=== PATIENT | female | born 1960 | race Two or more races ===

== ENCOUNTER 2024-06-08 09:43 | Emergency (ER) | payer MEDICAID, OTHER ==
[~2024-06-08] VITALS: Ht 167.6 cm; Wt 98.0 kg
[2024-06-08 09:45] VITALS: O2SAT 100
[2024-06-08] MEDS: MORPHINE SULFATE 4 MG/ML INJ (FOR IV/IM USE) IV ONE ×2 (11:36→14:13)
[2024-06-08 12:01] LABS: BASOPHILS % 0.2 % (0.0-2.0); EOSINOPHILS % 0.8 % (0.0-5.0); HEMATOCRIT. 36.8 % (36.0-48.0); HEMOGLOBIN. 11.8 g/dL (12.0-16.0); LYMPHOCYTES % 8.4 % (20.0-50.0); MEAN CORPUSCULAR HGB CONC 32.2 g/dL (31.0-37.0); MEAN CORPUSCULAR VOLUME 90.1 fL (81.0-99.0); MEAN PLATELET VOLUME 8.4 fl (7.4-10.4); MONOCYTES % 4.5 % (2.0-8.0); NEUTROPHILS % 86.1 % (40.0-76.0); PLATELET 272 x1000/uL (130-400); RED BLOOD CELL COUNT 4.09 mill/uL (4.2-5.4); RED CELL DISTRIBUTION WIDTH 15.2 % (11.6-14.6); WHITE BLOOD COUNT 16.3 x1000/uL (4.5-11.0)
[2024-06-08 12:08] LABS: CHLORIDE 104 mEq/L (98-107); POTASSIUM 3.8 mEq/L (3.5-5.1); SODIUM 137 mEq/L (136-145)
[2024-06-08 12:09] LABS: CALCIUM 9.5 mg/dL (8.7-10.4); CARBON DIOXIDE 26 mEq/L (21-32)
[2024-06-08 12:14] LABS: CREATININE 0.4 mg/dL (0.6-1.0); GLUCOSE 110 mg/dL (70-105); UREA NITROGEN BLOOD 11 mg/dL (9-23)
[2024-06-08 12:16] LABS: ALANINE AMINOTRANSFERASE 20 IU/L (10-49); ALBUMIN 4.3 g/dL (3.2-4.8); ASPARTATE AMINOTRANSFERASE 25 IU/L (<34); BILIRUBIN TOTAL 0.4 mg/dL (0.1-1.0); PROTEIN TOTAL 7.7 g/dL (6.0-8.3)
[2024-06-08] MEDS: LACTATED RINGERS 1,000 ML IV SCH (14:00)
[2024-06-08] MEDS: ONDANSETRON HCL 4MG/2ML INJ IV ONE (14:14)
[2024-06-08] MEDS: CYCLOBENZAPRINE 10MG TABLET PO ONE (15:34)
[2024-06-08] MEDS: LACTATED RINGERS 1,000 ML IV ONE (17:37)
[2024-06-08 18:30] VITALS: TEMP 36.66960
[2024-06-08 20:19] VITALS: BP 166/70; PULSE 112; RESP 18; O2SAT 100
== END 2024-06-08 20:40 | disposition short-term general hospital (02) ==
LOC: ER 09:43
DX: S72.401A Unspecified fracture of lower end of right femur, initial encounter for closed fracture (principal); R51.9 Headache, unspecified; Z88.0 Allergy status to penicillin; Z98.890 Other specified postprocedural states; W01.0XXA Fall on same level from slipping, tripping and stumbling without subsequent striking against object, initial encounter; Y93.89 Activity, other specified; Y92.89 Other specified places as the place of occurrence of the external cause; Y99.8 Other external cause status
CPT/HCPCS: 80053; 85025; 86850; 86900; 86901; 36415; 73502; 73551; 73560; 70450; 29515; 96361; 96374; 96375; 96376; 99285; J2405; J2270; J7120; Z7610